=== PATIENT | female | born 1950 | race Caucasian/White ===

== ENCOUNTER → 2023-05-25 | Outpatient (CLI) | payer MEDICARE ==
[~2023-05-25] MED LIST: GADOTERATE MEGLUMINE 10 MMOL/20 ML VIAL IV ONE
== END | disposition home or self-care (01) ==
LOC: RAH 08:59
PROVIDERS: ATTEND Student in an Organized Health Care Education/Training Program
DX: G31.89 Other specified degenerative diseases of nervous system (principal); C90.00 Multiple myeloma not having achieved remission
CPT/HCPCS: 70553; A9575

== ENCOUNTER 2023-10-23 05:49 | Day surgery (SDC) | payer MEDICARE ==
[~2023-10-23 05:49] MED LIST changes: +ACYC400T20 PO; +AMLO-257 PO; +APIX5TAB PO; +BENZ-226 PO; +BIOT1CAP3 PO; +BUDE10.2 IH; +CHOL100020 PO; +DRON400T7 PO; +ESTR10TA4 VG; +FENT1PAT63 TD; -GADOTERATE MEGLUMINE 10 MMOL/20 ML VIAL IV ONE; +LATA2.5D14 OU; +LIDOCAINE TD; +LOSA100T59 PO; +MONT-39 PO; +MULT-1367 PO; +OMEP40CA21 PO; +RIZA10TA41 PO; +TIZA-194 PO
[2023-10-23 06:12] VITALS: BP 136/62; PULSE 71; RESP 16
[2023-10-23 06:46] LABS: BASOPHILS # (AUTO) 0.04 K/uL (0.00-0.20); BASOPHILS % (AUTO) 0.9 % (0.0-5.0); EOSINOPHILS # (AUTO) 0.09 K/uL (0.00-0.70); HEMATOCRIT 32.9 % (36-48); IMMATURE GRANULOCYTE ABSOLUTE 0.02 K/uL (0-1); LYMPHOCYTES # (AUTO) 0.5 K/uL (1.0-4.8); LYMPHOCYTES % (AUTO) 12.1 % (21.0-51.0); MEAN CORPUSCULAR HEMOGLOBIN 27.5 pg (27.0-33.0); MEAN CORPUSCULAR HGB CONC 31.3 g/dL (32.0-36.0); MEAN CORPUSCULAR VOLUME 87.7 fL (79-99); MONOCYTES # (AUTO) 0.3 K/uL (0.1-1.0); MONOCYTES % (AUTO) 7.2 % (3.0-13.0); NEUTROPHILS # (AUTO) 3.5 K/uL (1.8-7.7); NEUTROPHILS % (AUTO) 77.4 % (40.0-77.0); PLATELET COUNT (AUTO) 168 K/uL (130-400); RED BLOOD CELL COUNT(AUTO) 3.75 MIL/uL (4.00-5.50); RED CELL DISTRIBUTION WIDTH 16.9 % (11.0-15.5); WHITE BLOOD COUNT (AUTO) 4.5 K/uL (4.8-10.8)
[2023-10-23 06:52] LABS: POTASSIUM 3.5 mmol/L (3.5-5.1)
[2023-10-23 06:53] LABS: INR 1.03 (0.85-1.15); PROTHROMBIN TIME 11.1 SEC (9.6-11.6)
[2023-10-23 06:54] LABS: PARTIAL THROMBOPLASTIN TIME 31.7 SEC (26.3-35.5)
[2023-10-23] MEDS: 0.9%NACL 1000ML 1,000 ML IV ONE (06:59)
[2023-10-23] MEDS ORDERED: PROPOFOL 10 MG/ML 20ML VIAL IV ONE (07:04)
[2023-10-23] MEDS ORDERED: LIDOCAINE PF 100MG/5ML (2%) SYRINGE 5ML ONE (07:11)
[2023-10-23] MEDS ORDERED: GLYCOPYRROLATE 0.2 MG/ML 5 ML VIAL ONE (07:14)
[2023-10-23] MEDS ORDERED: LIDOCAINE HCL 2% VISCOUS 15 ML UDCUP ONE (07:23)
[2023-10-23 07:46] VITALS: BP 125/68; PULSE 89; RESP 16
[2023-10-23 07:55] VITALS: BP 126/85; PULSE 89; RESP 16
[2023-10-23 08:15] VITALS: BP 144/80; PULSE 94; RESP 14
[2023-10-23 08:30] VITALS: BP 153/79; PULSE 86; RESP 16
== END 2023-10-23 08:30 | disposition home or self-care (01) ==
LOC: DAH 05:49 → RAH 05:49 → EDSTATUS 08:00 → RAH 08:30
PROVIDERS: ATTEND Student in an Organized Health Care Education/Training Program
DX: I48.0 Paroxysmal atrial fibrillation (principal); Z53.8 Procedure and treatment not carried out for other reasons; I10 Essential (primary) hypertension; C90.00 Multiple myeloma not having achieved remission; I08.1 Rheumatic disorders of both mitral and tricuspid valves; Z99.89 Dependence on other enabling machines and devices; Z98.890 Other specified postprocedural states; Z79.899 Other long term (current) drug therapy; Z88.1 Allergy status to other antibiotic agents; Z88.5 Allergy status to narcotic agent; Z88.2 Allergy status to sulfonamides; Z88.8 Allergy status to other drugs, medicaments and biological substances; Z91.048 Other nonmedicinal substance allergy status
CPT/HCPCS: 80048; 85025; 85610; 85730; 36415; 93005; J7030; J2001; J2704; J3490; A4620; A4215; A4223 ×3; A4657; A7002; A4222; A4221; A4663; A4216; A4606